=== PATIENT | male | born 1995 | race Caucasian/White ===

== ENCOUNTER 2017-05-27 17:37 | Inpatient (IN) | payer MEDICAID ==
[~2017-05-27] VITALS: Ht 175.3 cm; Wt 67.6 kg
[2017-05-27 20:20] LABS: BASOPHILS % (AUTO) 0.6 % (0.0-2.0); EOSINOPHILS % (AUTO) 1.1 % (1.0-6.0); HEMATOCRIT 51.4 % (41-53); HEMOGLOBIN 17.2 g/dL (13.5-17.5); LYMPHOCYTES # (AUTO) 2.1 K/uL (1.0-4.8); LYMPHOCYTES % (AUTO) 19.8 % (22.0-44.0); MEAN CORPUSCULAR HGB CONC 33.5 G/dL (31.0-37.0); MEAN CORPUSCULAR VOLUME 84 fL (80-100); MONOCYTES # (AUTO) 0.6 K/uL (0.1-1.0); MONOCYTES % (AUTO) 5.8 % (2.0-9.0); NEUTROPHILS # (AUTO) 7.7 K/uL (1.8-7.7); NEUTROPHILS % (AUTO) 72.7 % (40.0-70.0); PLATELET COUNT (AUTO) 354 K/uL (150-450); RED BLOOD CELL COUNT(AUTO) 6.16 MIL/uL (4.50-5.90); RED CELL DISTRIBUTION WIDTH 13.4 % (11.5-14.5)
[2017-05-27 20:30] LABS: ANION GAP 8 mmol/L (8-16); CALCIUM, TOTAL 9.5 mg/dL (8.8-10.5); CARBON DIOXIDE 30 mmol/L (22-29); CHLORIDE 100 mmol/L (98-107); CREATININE 1.23 mg/dL (0.60-1.30); GLOMERULAR FILTR. RATE CALC > 60 mL/min (>60); GLUCOSE,RANDOM 126 mg/dL (70-110); POTASSIUM 3.9 mmol/L (3.5-5.1); SODIUM SERUM 138 mmol/L (136-145); UREA NITROGEN, BLOOD 18 mg/dL (7-18)
[2017-05-27 20:36] LABS: ALANINE AMINOTRANSFERASE 38 U/L (12-78); ALBUMIN 4.6 g/dL (3.4-5.0); ALKALINE PHOSPHATASE 59 U/L (46-116); ASPARTATE AMINOTRANSFERASE 15 U/L (15-37); BILIRUBIN,TOTAL 0.5 mg/dL (0.1-1.0); TOTAL PROTEIN, SERUM 8.6 g/dL (6.4-8.2)
[2017-05-27 20:40] LABS: AMPHET/METH SCREEN,URINE NEGATIVE (NEGATIVE); BARBITURATE SCREEN, URINE NEGATIVE (NEGATIVE); BENZODIAZEPINES SCREEN,URINE POSITIVE (NEGATIVE); CANNABINOID SCREEN,URINE POSITIVE (NEGATIVE); COCAINE SCREEN,URINE NEGATIVE (NEGATIVE); METHADONE SCREEN, URINE NEGATIVE (NEGATIVE); OPIATE SCREEN,URINE NEGATIVE (NEGATIVE)
[2017-05-27 20:41] LABS: PHENCYCLIDINE SCREEN,URINE NEGATIVE (NEGATIVE)
[2017-05-27] MEDS ORDERED: LORazepam 1 MG TABLET PO ONE (22:15)
[2017-05-27] MEDS ORDERED: LORazepam 2 MG TABLET PO PRN (22:30)
[2017-05-27] MEDS ORDERED: ZOLPIDEM TARTRATE 10 MG TABLET PO PRN (22:30)
[2017-05-27] MEDS ORDERED: HALOPERIDOL 5 MG TABLET PO PRN (22:30)
[2017-05-28 00:54] VITALS: BP 112/61
[2017-05-28] MEDS ORDERED: INFLUENZA VIRUS VACCINE QVS 2017-18 (3YR+)/PF 60 MCG/0.5 ML SYRINGE IM ONE (01:15)
[2017-05-28] MEDS ORDERED: HALOPERIDOL 5 MG TABLET PO PRN (01:30)
[2017-05-28] MEDS ORDERED: ZOLPIDEM TARTRATE 10 MG TABLET PO PRN (01:30)
[2017-05-28 08:08] VITALS: BP 117/68
[2017-05-28] MEDS: LORazepam 2 MG TABLET PO PRN ×2 (12:13→16:19)
[2017-05-28 16:08] VITALS: BP 122/75
[2017-05-29 04:22] VITALS: BP 116/61
[2017-05-29 08:50] VITALS: BP 117/67
[2017-05-29 08:51] LABS: CHOL/HDL RATIO 2.4 (4.2-7.3)
[2017-05-29] MEDS: LORazepam 2 MG TABLET PO PRN ×2 (08:56→14:19)
[2017-05-29 16:08] VITALS: BP 115/67
[2017-05-30 08:33] VITALS: BP 114/73
[2017-05-30 12:23] VITALS: BP 115/70
[2017-05-30] MEDS: LORazepam 2 MG TABLET PO PRN (12:25)
== END 2017-05-30 12:55 | disposition home or self-care (01) | DRG 754 ==
LOC: EMS 17:38 → B2S 22:43
PROVIDERS: ADMIT Psychiatry & Neurology Psychiatry; ATTEND Psychiatry & Neurology Psychiatry
DX: F32.9 Major depressive disorder, single episode, unspecified (principal); R45.851 Suicidal ideations; F22 Delusional disorders; F12.10 Cannabis abuse, uncomplicated; R73.9 Hyperglycemia, unspecified; Z87.891 Personal history of nicotine dependence; Z28.21 Immunization not carried out because of patient refusal
CPT/HCPCS: G0480